=== PATIENT | female | born 1995 | race Caucasian/White ===

== ENCOUNTER 2019-10-09 21:53 | Emergency (ER) | payer OTHER ==
[2019-10-10] MEDS ORDERED: ACETAMINOPHEN 325 MG TABLET PO ONE (00:11)
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
[2019-10-10] MEDS ORDERED: IBUPROFEN 800 MG TABLET PO ONE (03:04)
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
[2019-10-10 05:22] VITALS: BP 107/59
== END 2019-10-10 05:23 | disposition home or self-care (01) ==
LOC: ER 21:53
DX: S16.1XXA Strain of muscle, fascia and tendon at neck level, initial encounter (principal); S80.02XA Contusion of left knee, initial encounter; S80.01XA Contusion of right knee, initial encounter; S80.212A Abrasion, left knee, initial encounter; S80.211A Abrasion, right knee, initial encounter; S89.92XA Unspecified injury of left lower leg, initial encounter; S05.92XA Unspecified injury of left eye and orbit, initial encounter; M79.605 Pain in left leg; M25.562 Pain in left knee; M25.572 Pain in left ankle and joints of left foot; M79.672 Pain in left foot; V89.2XXA Person injured in unspecified motor-vehicle accident, traffic, initial encounter; F17.200 Nicotine dependence, unspecified, uncomplicated
CPT/HCPCS: 71046; 72050; 99283